=== PATIENT | male | born 1985 ===

== ENCOUNTER 2021-01-27 05:37 | Emergency (ER) | payer OTHER ==
[~2021-01-27] VITALS: Ht 175.3 cm; Wt 90.7 kg
== END 2021-01-27 09:24 | disposition home or self-care (01) ==
LOC: ER 05:37
DX: N20.2 Calculus of kidney with calculus of ureter (principal); N39.0 Urinary tract infection, site not specified; B95.1 Streptococcus, group B, as the cause of diseases classified elsewhere; R31.0 Gross hematuria; R10.31 Right lower quadrant pain